=== PATIENT | male | born 1965 | race African-American/Black ===

== ENCOUNTER 2019-02-04 11:16 | Emergency (ER) | payer OTHER, SELFPAY ==
[2019-02-04 11:21] VITALS: BP 151/90; PULSE 79; RESP 15; TEMP 36.7; O2SAT 100; BMI 23.0
--- NOTE | 2019-02-04 11:21 | DI.RAD.S_ITS ---
PROCEDURE: XR CHEST 2V INDICATIONS: shortness of breath TECHNIQUE: 2 views of the chest were acquired. COMPARISON: None. FINDINGS: Surgical changes and devices: None. Lungs and pleura: Lungs are clear. No pleural effusions or pneumothorax. Mediastinum: Mediastinal contours are normal. Heart size is normal. Bones and chest wall: No suspicious bony abnormalities. Soft tissues appear unremarkable. IMPRESSION: No acute cardiopulmonary disease process. Dictated by: Kanika Lewis MD, PhD on 02/04/2019 at 11:51 Approved by: Kanika Lewis MD, PhD on 02/04/2019 at 11:52
[2019-02-04 11:47] LABS: Add Manual Diff / Slide Review NO; Basophils Absolute Auto 100 /uL (0-100); Eosinophils Absolute Auto 100 /uL (0-450); Eosinophils Percent Auto 2.3 % (2-4); Hematocrit 41.1 % (41-53); Hemoglobin 14.4 g/dL (13.5-17.5); Lymphocytes Absolute Auto 1800 /uL (1100-4500); Lymphocytes Percent Auto 33.5 % (25-40); Mean Corpuscular Hemoglobin 34.2 PG (26-34); Mean Corpuscular Volume 97.7 fL (80-100); Monocytes Absolute Auto 400 /uL (0-900); Monocytes Percent Auto 8.4 % (3-14); Neutrophils Absolute Auto 2900 /uL (1500-7000); Neutrophils Percent Auto 54.8 % (50-75); Platelet Count 211 X10^3/uL (150-400); Red Blood Cell Count 4.21 X10^6/uL (4.5-5.9); Red Cell Distribution Width 12.9 % (11.6-14.8); White Blood Cell Count 5.4 X10^3/uL (4.5-11.0)
[2019-02-04 11:50] LABS: Influenza A and B by PCR Rapid Negative (Negative)
[2019-02-04 12:00] LABS: Alanine Aminotransferase 21 IU/L (21-72); Albumin Globulin Ratio 1.7 (1.0-2.8); Alkaline Phosphatase 44 U/L (38-126); Aspartate Aminotransferase 37 IU/L (17-59); BUN Creatinine Ratio 15.6 (6-22); Bilirubin Total 0.4 mg/dL (0.2-1.3); Blood Urea Nitrogen 14 mg/dL (9-20); Calcium 9.7 mg/dL (8.4-10.2); Carbon Dioxide 29 mmol/L (22-32); Chloride 104 mmol/L (98-107); Creatine Kinase 162 U/L (55-170); Estimated Glomerular Filt Rate > 60.0 mL/min (>60); Glucose 92 mg/dL (70-100); HEMOLYSIS < 15 (0-50); Potassium 4.1 mmol/L (3.4-5.1); Sodium 143 mmol/L (137-145)
[2019-02-04 12:01] LABS: Lactate (Lactic Acid) 1.5 mmol/L (0.7-2.1)
[2019-02-04 12:12] LABS: Troponin I 0.013 ng/mL (0.01-0.034)
[2019-02-04 12:16] LABS: Creatine Kinase MB 1.56 ng/mL (<2.37)
[2019-02-04 12:30] VITALS: BP 142/84; PULSE 53; RESP 11; O2SAT 100
[2019-02-04] MEDS: MAG HYDROX/ALUMINUM/SIMETH SUS 20 ML, LIDOCAINE VISCOUS 2% 15 ML PO (12:48)
[2019-02-04 12:58] VITALS: PULSE 60; RESP 14; O2SAT 99
[2019-02-04] MEDS: ALBUTEROL/IPRATROPIUM 3 ML AMPUL INH (12:58)
--- NOTE | 2019-02-04 13:06 | ED_ITS ---
HPI - SOB/Dyspnea <DERREK AmbroseP - Last Filed: 02/04/19 21:50> General Chief Complaint: Shortness of Breath/Dyspnea Stated Complaint: SOB/ STOMACH PAIN X4DAYS Time Seen by Provider: 02/04/19 11:30 Source: patient Mode of arrival: Ambulatory Limitations: no limitations History of Present Illness HPI Narrative: This is a 54 year or male, smoker, who presents to ED with mid abdominal pain for 4 days, nonproductive cough. Patient has been having decreased appetite and loose stools without blood. Patient initially denied chest discomfort but when his spouse reminded him then states had some pressure like discomfort early this morning with chocking like sensation in his throat d escribing like GERD symptoms. Self reported fever and chills yesterday but denies nausea or vomiting. Patient reports a long history of bronchitis since . 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 Related Data Previous Rx's Medication Instructions Recorded albuterol sulfate 2 inhalation INHALATION Q4-6H PRN 02/04/19 #18 gram omeprazole 20 mg PO DAILY #14 cap 02/04/19 Allergies Allergy/AdvReac Type Severity Reaction Status Date / Time No Known Drug Allergies Allergy Verified 02/04/19 11:21 Review of Systems <MARTY Ambrose - Last Filed: 02/04/19 21:50> Review of Systems Narrative: General: One day of fever, chills yesterday which resolved. Denies Fatigue, malaise, sweats. HEENT: Denies sinus pain, ear pain, sore throat, difficulty swallowing, dizziness. Respiratory: Nonproductive cough. Denies dyspnea, wheezing, hemoptysis, sputum. Cardiovascular: See HPI Gastrointestinal: See HPI : Denies dysuria, frequency, incontinence, hematuria, urinary retention. Musculoskeletal: Denies weakness, joint pain or bony pain. Skin: Denies rash, skin lesions, or other. Neurologic: Denies weakness, headache, numbness, change in speech, confusion, seizures, incoordination. Psychiatric: No concerning psychosocial issues. 12-point review of systems is negative except for those stated above. Patient History <MARTY Ambrose Last Filed: 02/04/19 21:50> Medical History Bronchitis (Acute) Surgical History No pertinent past surgical history (Acute) Social History Smoking Status: Current every day smoker alcohol intake frequency: a few times a week Substance Use Type: marijuana Exam <MARTY Ambrose - Last Filed: 02/04/19 21:50> Narrative Exam Narrative: GEN: Alert, oriented x 3, well appearing and nourished, and in no acute distress. Head: Normal cephalic, atraumatic. No scalp or temporal tenderness, palpable mass or rash. EYES: Pupils are equal, round, and reactive to light and accommodation. Extraocular muscles are intact bilaterally. There is no subconjunctival hemorrhage, exudate and sclera icteric. ENT: Bilateral auditory canals and tympanic membranes clear. Hearing grossly intact. Nose without bleeding, purulent discharge or deviation. Facial sinuses nontender to palpate. Mucous membrane moist, no mucosal lesion. Throat without erythema, tonsillar hypertrophy or exudate. Uvula in midline, airway patent. Neck: Trachea in midline. No JVD, non-tender without lymphadenopathy. No masses or thyroid megaly. Supple, non-tender and no meningeal signs. CARDIAC: Normal regular rate and rhythm without murmurs, gallops, or rubs. No chest wall tenderness. No peripheral edema, cyanosis or pallor. Capillary refill is less than 2 seconds. RESPIRATORY: Lungs are clear to auscultate bilaterally. No cough, wheezes, rales, or rhonchi. No stridor, respiratory distress, increase work of breathing, or accessary muscle used. ABD: Abdomen soft, nontender and non-distended. No guarding or rebound tenderness to palpate. Bowel sounds are normal in all 4 quadrants. There is no palpable masses or organomegaly. EXT: Full painless ROM of all extremities with no loss of sensation, strength, effusion or edema. SKIN: Warm, dry, normal color for patient. No erythema, lesions or rash over visible areas. BACK: Nontender without deformity or crepitance. No flank tenderness. NEUROLOGICAL: Alert and oriented to place, time and person. Sensation and motor function intact bilaterally. No facial droops, dysphasia. PSYCHIATRIC: Good judgement and reason, without hallucinations, abnormal affect or abnormal behaviors during the examination. Initial Vital Signs Initial Vital Signs: Vital Signs Temperature 98.1 F 02/04/19 11:21 Pulse Rate 79 02/04/19 11:21 Respiratory Rate 15 02/04/19 11:21 Blood Pressure 151/90 H 02/04/19 11:21 Pulse Oximetry 100 02/04/19 11:21 <Ernie Thornton DO - Last Filed: 02/05/19 07:03> Initial Vital Signs Initial Vital Signs: Vital Signs Temperature 98.1 F 02/04/19 11:21 Pulse Rate 79 02/04/19 11:21 Respiratory Rate 15 02/04/19 11:21 Blood Pressure 151/90 H 02/04/19 11:21 Pulse Oximetry 100 02/04/19 11:21 Scores <Eduardo EdgeMARTY Cornelius - Last Filed: 02/04/19 21:50> GCS [place] coma scale eye opening: Spontaneous [place] coma scale verbal response: Orientated [place] coma scale motor response: Obey commands [place] coma scale total score: 15 HEART Score Heart Score history: Slightly Suspicious Heart Score EKG: Normal Heart Score Age: 45-64 years old Heart Score risk factors: 1-2 risk factors Heart Score troponin: < or = to normal limit Heart Score Total: 2 Course <MARTY Amborse - Last Filed: 02/04/19 21:50> Orders Ordered: Discontinued Medications Albuterol/Ipratropium (Duoneb) 3 ml INH NOW ONE Stop: 02/04/19 12:41 Last Admin: 02/04/19 12:58 Dose: 3 ml Documented by: ADARSH Al Hydrox/Mg Hydrox/Simethicone 20 ml/ Lidocaine HCl 15 ml 0 ml PO NOW ONE Stop: 02/04/19 12:41 Last Admin: 02/04/19 12:48 Dose: 35 ml Documented by: CARLOS Reevaluation(s) Reevaluation #1: Feeling better after the neb treatment Time: 13:06 Vital Signs Vital signs: Vital Signs - 8 hr 02/04/19 11:21 02/04/19 12:30 02/04/19 12:58 Temperature 98.1 F Pulse Rate 79 53 L 60 Respiratory Rate 15 11 L 14 Blood Pressure 151/90 H Blood Pressure [Right Arm] 142/84 H Pulse Oximetry 100 100 99 02/04/19 13:07 Temperature Pulse Rate 56 L Respiratory Rate 11 L Blood Pressure Blood Pressure [Right Arm] 138/86 Pulse Oximetry 100 <Ernie Thornton DO - Last Filed: 02/05/19 07:03> Orders Ordered: Discontinued Medications Albuterol/Ipratropium (Duoneb) 3 ml INH NOW ONE Stop: 02/04/19 12:41 Last Admin: 02/04/19 12:58 Dose: 3 ml Documented by: ADARSH Al Hydrox/Mg Hydrox/Simethicone 20 ml/ Lidocaine HCl 15 ml 0 ml PO NOW ONE Stop: 02/04/19 12:41 Last Admin: 02/04/19 12:48 Dose: 35 ml Documented by: CARLOS Vital Signs Vital signs: Vital Signs - 8 hr 02/04/19 11:21 02/04/19 12:30 02/04/19 12:58 Temperature 98.1 F Pulse Rate 79 53 L 60 Respiratory Rate 15 11 L 14 Blood Pressure 151/90 H Blood Pressure [Right Arm] 142/84 H Pulse Oximetry 100 100 99 02/04/19 13:07 Temperature Pulse Rate 56 L Respiratory Rate 11 L Blood Pressure Blood Pressure [Right Arm] 138/86 Pulse Oximetry 100 MDM - SOB/Dyspnea <MARTY Ambrose - Last Filed: 02/04/19 21:50> Differential Diagnosis Differential diagnosis: Likely community acquired pneumonia and other (Bronchitis, GERD, atypical chest pain, reactive airway disease) Medical Records Attestation: I reviewed the patient's medical records. Lab Data Attestation: I reviewed the patient's lab results. Result diagrams: 02/04/19 11:43 02/04/19 11:43 Labs: Lab Results 02/04/19 02/04/19 02/04/19 Range/Units 11:33 11:43 11:43 WBC 5.4 (4.5-11.0) X10^3/uL RBC 4.21 L (4.5-5.9) X10^6/uL Hgb 14.4 (13.5-17.5) g/dL Hct 41.1 (41-53) % MCV 97.7 (80-100) fL MCH 34.2 H (26-34) PG MCHC 35.0 (30-36) % RDW 12.9 (11.6-14.8) % Plt Count 211 (150-400) X10^3/uL Neut % (Auto) 54.8 (50-75) % Lymph % (Auto) 33.5 (25-40) % [place] % (Auto) 8.4 (3-14) % Eos % (Auto) 2.3 (2-4) % Baso % (Auto) 1.0 (0-2) % Neut # (Auto) 2900 (4531-0236) /uL Lymph # (Auto) 1800 (2333-6370) /uL [place] # (Auto) 400 (0-900) /uL Eos # (Auto) 100 (0-450) /uL Baso # (Auto) 100 (0-100) /uL PT INR APTT Sodium 143 (137-145) mmol/L Potassium 4.1 (3.4-5.1) mmol/L Chloride 104 (98-107) mmol/L Carbon Dioxide 29 (22-32) mmol/L BUN 14 (9-20) mg/dL Creatinine 0.90 (0.66-1.25) mg/dL Estimated GFR > 60.0 (>60) mL/min BUN/Creatinine Ratio 15.6 (6-22) Glucose 92 (70-100) mg/dL Lactate (0.7-2.1) mmol/L Calcium 9.7 (8.4-10.2) mg/dL Total Bilirubin 0.4 (0.2-1.3) mg/dL AST 37 (17-59) IU/L ALT 21 (21-72) IU/L Alkaline Phosphatase 44 (38-126) U/L Total Creatine Kinase (55-170) U/L CK-MB (CK-2) (<2.37) ng/mL CK-MB (CK-2) Rel Index (1.5-5.0) % Troponin I (0.01-0.034) ng/mL Total Protein 8.0 (6.3-8.2) g/dL Albumin 5.0 (3.5-5.0) g/dL Globulin 3.0 (1.7-4.1) g/dL Albumin/Globulin Ratio 1.7 (1.0-2.8) Influenza A & B (PCR) Negative (Negative) 02/04/19 02/04/19 02/04/19 Range/Units 11:43 11:43 11:43 WBC (4.5-11.0) X10^3/uL RBC (4.5-5.9) X10^6/uL Hgb (13.5-17.5) g/dL Hct (41-53) % MCV (80-100) fL MCH (26-34) PG MCHC (30-36) % RDW (11.6-14.8) % Plt Count (150-400) X10^3/uL Neut % (Auto) (50-75) % Lymph % (Auto) (25-40) % [place] % (Auto) (3-14) % Eos % (Auto) (2-4) % Baso % (Auto) (0-2) % Neut # (Auto) (3231-8178) /uL Lymph # (Auto) (2201-2369) /uL [place] # (Auto) (0-900) /uL Eos # (Auto) (0-450) /uL Baso # (Auto) (0-100) /uL PT Cancelled INR Cancelled APTT Cancelled Sodium (137-145) mmol/L Potassium (3.4-5.1) mmol/L Chloride (98-107) mmol/L Carbon Dioxide (22-32) mmol/L BUN (9-20) mg/dL Creatinine (0.66-1.25) mg/dL Estimated GFR (>60) mL/min BUN/Creatinine Ratio (6-22) Glucose (70-100) mg/dL Lactate 1.5 (0.7-2.1) mmol/L Calcium (8.4-10.2) mg/dL Total Bilirubin (0.2-1.3) mg/dL AST (17-59) IU/L ALT (21-72) IU/L Alkaline Phosphatase (38-126) U/L Total Creatine Kinase 162 (55-170) U/L CK-MB (CK-2) 1.56 (<2.37) ng/mL CK-MB (CK-2) Rel Index 1.0 L (1.5-5.0) % Troponin I 0.013 (0.01-0.034) ng/mL Total Protein (6.3-8.2) g/dL Albumin (3.5-5.0) g/dL Globulin (1.7-4.1) g/dL Albumin/Globulin Ratio (1.0-2.8) Influenza A & B (PCR) (Negative) Imaging Data Chest x-ray: Radiologist's impression: [address] [address] XRay Report Signed Patient: Hilton Sanchez GMR#: [id number] : 1965Acct:[id number] Age/Sex: 54 / MDate of Service: 02/04/19 Loc: ED Accession Number: [id number] Procedure: XR chest 2V Ordering Provider: Ernie Thornton D.O. PROCEDURE: XR CHEST 2V INDICATIONS: shortness of breath TECHNIQUE: 2 views of the chest were acquired. COMPARISON: None. FINDINGS: Surgical changes and devices: None. Lungs and pleura: Lungs are clear. No pleural effusions or pneumothorax. Mediastinum: Mediastinal contours are normal. Heart size is normal. Bones and chest wall: No suspicious bony abnormalities. Soft tissues appear unremarkable. IMPRESSION: No acute cardiopulmonary disease process. Dictated by: Kanika Lewis MD, PhD on 02/04/2019 at 11:51 Approved by: Kanika Lewis MD, PhD on 02/04/2019 at 11:52 ECG Data Attestation: I personally reviewed and interpreted this ECG as follows: Prior ECG tracings: not available for review Interpretation: Sinus rhythm with sinus arrhythmia rate at 63. Right ventricular conduction delay in V1/V2, No ST elevation or depression. [facility] Narrative Medical decision making narrative: 54-year-old gentleman who presents to ED with nonproductive cough with some chest discomfort and breathing difficulty for 2-4 days and GERD like symptoms for about a week. 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 Patient has history of frequent bronchitis in the past. Patient's heart score was 2 (Smoker, Age) without previous cardiac history. EKG was sinus rhythm with right ventricular delayed conduction. Cardiac enzymes were negative. Chest x-ray did not show any acute findings. Patient was treated with 1 dose of DuoNeb and reports improved symptoms. Patient also was medicated with GI cocktail. Findings were discussed with the patient and patient advised to set up a PCP to follow up with outpatient cardiac workup and possible colonoscopy or EGD. Patient was discharged to home with albuterol inhaler and 2 week course of omeprazole. Advised to avoid triggers for his r espiratory and GERD symptoms. Return precautions were discussed with patient and patient verbalized understanding and agrees with treatment plan. <Ernie Thornton, - Last Filed: 02/05/19 07:03> Lab Data Labs: Lab Results 02/04/19 02/04/19 02/04/19 Range/Units 11:33 11:43 11:43 WBC 5.4 (4.5-11.0) X10^3/uL RBC 4.21 L (4.5-5.9) X10^6/uL Hgb 14.4 (13.5-17.5) g/dL Hct 41.1 (41-53) % MCV 97.7 (80-100) fL MCH 34.2 H (26-34) PG MCHC 35.0 (30-36) % RDW 12.9 (11.6-14.8) % Plt Count 211 (150-400) X10^3/uL Neut % (Auto) 54.8 (50-75) % Lymph % (Auto) 33.5 (25-40) % [place] % (Auto) 8.4 (3-14) % Eos % (Auto) 2.3 (2-4) % Baso % (Auto) 1.0 (0-2) % Neut # (Auto) 2900 (4539-3312) /uL Lymph # (Auto) 1800 (9601-5319) /uL [place] # (Auto) 400 (0-900) /uL Eos # (Auto) 100 (0-450) /uL Baso # (Auto) 100 (0-100) /uL PT INR APTT Sodium 143 (137-145) mmol/L Potassium 4.1 (3.4-5.1) mmol/L Chloride 104 (98-107) mmol/L Carbon Dioxide 29 (22-32) mmol/L BUN 14 (9-20) mg/dL Creatinine 0.90 (0.66-1.25) mg/dL Estimated GFR > 60.0 (>60) mL/min BUN/Creatinine Ratio 15.6 (6-22) Glucose 92 (70-100) mg/dL Lactate (0.7-2.1) mmol/L Calcium 9.7 (8.4-10.2) mg/dL Total Bilirubin 0.4 (0.2-1.3) mg/dL AST 37 (17-59) IU/L ALT 21 (21-72) IU/L Alkaline Phosphatase 44 (38-126) U/L Total Creatine Kinase (55-170) U/L CK-MB (CK-2) (<2.37) ng/mL CK-MB (CK-2) Rel Index (1.5-5.0) % Troponin I (0.01-0.034) ng/mL Total Protein 8.0 (6.3-8.2) g/dL Albumin 5.0 (3.5-5.0) g/dL Globulin 3.0 (1.7-4.1) g/dL Albumin/Globulin Ratio 1.7 (1.0-2.8) Influenza A & B (PCR) Negative (Negative) 02/04/19 02/04/19 02/04/19 Range/Units 11:43 11:43 11:43 WBC (4.5-11.0) X10^3/uL RBC (4.5-5.9) X10^6/uL Hgb (13.5-17.5) g/dL Hct (41-53) % MCV (80-100) fL MCH (26-34) PG MCHC (30-36) % RDW (11.6-14.8) % Plt Count (150-400) X10^3/uL Neut % (Auto) (50-75) % Lymph % (Auto) (25-40) % [place] % (Auto) (3-14) % Eos % (Auto) (2-4) % Baso % (Auto) (0-2) % Neut # (Auto) (1064-5938) /uL Lymph # (Auto) (3062-8987) /uL [place] # (Auto) (0-900) /uL Eos # (Auto) (0-450) /uL Baso # (Auto) (0-100) /uL PT Cancelled INR Cancelled APTT Cancelled Sodium (137-145) mmol/L Potassium (3.4-5.1) mmol/L Chloride (98-107) mmol/L Carbon Dioxide (22-32) mmol/L BUN (9-20) mg/dL Creatinine (0.66-1.25) mg/dL Estimated GFR (>60) mL/min BUN/Creatinine Ratio (6-22) Glucose (70-100) mg/dL Lactate 1.5 (0.7-2.1) mmol/L Calcium (8.4-10.2) mg/dL Total Bilirubin (0.2-1.3) mg/dL AST (17-59) IU/L ALT (21-72) IU/L Alkaline Phosphatase (38-126) U/L Total Creatine Kinase 162 (55-170) U/L CK-MB (CK-2) 1.56 (<2.37) ng/mL CK-MB (CK-2) Rel Index 1.0 L (1.5-5.0) % Troponin I 0.013 (0.01-0.034) ng/mL Total Protein (6.3-8.2) g/dL Albumin (3.5-5.0) g/dL Globulin (1.7-4.1) g/dL Albumin/Globulin Ratio (1.0-2.8) Influenza A & B (PCR) (Negative) Discharge Plan Departure Patient Disposition: Home Clinical Impression: Bronchitis, Atypical chest pain GERD (gastroesophageal reflux disease) Qualifiers: Esophagitis presence: esophagitis presence not specified Qualified Code(s): K21.9 - Gastro-esophageal reflux disease without esophagitis Discharge Date/Time: 02/04/19 14:04 Instructions: DI for Gastroesophageal Reflux Disease (GERD), DI for Acute Bronchitis, DI for Atypical Chest Pain Activity Restrictions/Additional Instructions: You have been diagnosed with [atypical chest pain and bronchitis. The blood test including cardiac enzymes were for couple. EKG was unremarkable as well. Chest x-ray showed no pneumonia. If your stomach is bothersome frequently, you probably need to be referred to GI specialist/colonoscopy. When he set up an appointment with primary care physician, you probably need to arrange chest pain workup as well as an outpatient.]. What to do: *Take your medications as directed. Albuterol inhaler has been ordered for frequent coughing, chest tightness, or short of breath. You can take [id number] allergy medications as well. Please avoid trigger environments for your cough and allergy symptoms. *Follow up with your primary care provider in 2-3 days, call for an appointment. I included [facility] phone numbers for you to arrange this. Let them know you were seen in the ED and that we asked you to be seen in follow up. *Return to ED if you have any new, worsening, or concerning symptoms, such as [different type or worsening of chest pain, increasing breathing difficulty, nausea or vomiting, feeling weakness, fever, or any acute concerns]. Prescriptions: New albuterol sulfate 90 mcg/actuation HFA aerosol inhaler 2 inhalation INHALATION Q4-6H PRN (Reason: shortness of breath) Qty: 18 RF: 0 omeprazole 20 mg capsule,delayed release(DR/EC) 20 mg PO DAILY Qty: 14 RF: 0 Referrals: [facility] [Outside] <Ernie Thornton, - Last Filed: 02/05/19 07:03> Sign Out Provider Sign Out Attestation: I was available for consultation during this patient's emergency department visit. This chart is signed by myself for administrative purposes only. I did not have direct contact with this patient during this visit. They were seen independently by the APC.
[2019-02-04 13:07] VITALS: BP 138/86; PULSE 56; RESP 11; O2SAT 100
== END 2019-02-04 14:04 | disposition home or self-care (01) ==
PROVIDERS: Emergency Medicine; Emergency Provider Nurse Practitioner Family
DX: J40 Bronchitis, not specified as acute or chronic (principal); R07.9 Chest pain, unspecified; K21.9 Gastro-esophageal reflux disease without esophagitis; R05 Cough; R06.02 Shortness of breath
CPT/HCPCS: 36415; 71046; 80053; 82550; 82553; 83605; 84484; 85025; 87502; 93005; 93010; 94640; 99283; 99285

== ENCOUNTER 2020-06-09 09:59 | Emergency (ER) | payer OTHER, SELFPAY ==
[2020-06-09] VITALS (14 sets, daily range): BP systolic 139–171; BP diastolic 84–105; PULSE 52–84; RESP 12–28; TEMP 36.6; O2SAT 99–100; BMI 23.7
--- NOTE | 2020-06-09 10:01 | DI.RAD.S_ITS ---
PROCEDURE: XR CHEST 1V INDICATIONS: chest pain TECHNIQUE: One view of the chest was acquired. COMPARISON: [facility], CR, XR CHEST 2V, 02/04/2019, 11:36. FINDINGS: Surgical changes and devices: None. Lungs and pleura: Lungs are clear. No pleural effusions or pneumothorax. Mediastinum: Mediastinal contours appear normal. Heart size is normal. Bones and chest wall: No suspicious bony lesions. Overlying soft tissues appear unremarkable. IMPRESSION: No acute cardiopulmonary abnormalities or focal airspace disease. Dictated by: Kingston Rose M.D. on 06/09/2020 at 10:37 Approved by: Kingston Rose M.D. on 06/09/2020 at 10:38
--- NOTE | 2020-06-09 10:19 | ED.CHESTPAIN ---
HPI - Chest Pain General Chief Complaint: Chest Pain Stated Complaint: Mild Chest pain Time Seen by Provider: 06/09/20 10:09 Source: patient History of Present Illness HPI narrative: Patient here with girlfriend. Complains off and on substernal radiating chest discomfort to the neck. Has had diaphoresis. No palpitations numbness tingling or weakness. No dyspnea. Patient is a smoker. No known family history of coronary disease. Never had stress test in the past. Feels achy and sometimes choking sensation. No dietary intolerance. No nausea. Has been under lot of stress recently. Related Data Previous Rx's Medication Instructions Recorded albuterol sulfate 2 inhalation INHALATION Q4-6H PRN 02/04/19 #18 gram omeprazole 20 mg PO DAILY #14 cap 02/04/19 hydrochlorothiazide 12.5 mg PO DAILY 30 Days #30 tab 06/09/20 miscellaneous medical supply #1 ea 06/09/20 [Blood Pressure Cuff] omeprazole 40 mg PO DAILY 14 Days #14 cap 06/09/20 Allergies Allergy/AdvReac Type Severity Reaction Status Date / Time No Known Drug Allergies Allergy Verified 02/04/19 11:21 Review of Systems Review of Systems Narrative: GENERAL: Denies chills, fatigue, malaise, fever, sweats. HEENT: Denies sinus pain, ear pain, sore throat RESPIRATORY: Denies dyspnea, cough CARDIOVASCULAR: Complaint chest pain, denies palpitations, complains of diaphoresis GASTROINTESTINAL: Denies nausea, vomiting, abdominal pain : Denies dysuria, frequency, hematuria MUSCULOSKELETAL: denies muscle or bony pain SKIN: Denies rash, skin lesions NEUROLOGIC: Denies weakness, numbness ROS Unobtainable: All systems reviewed & are unremarkable except as noted in HPI and below Patient History Medical History (Updated 06/09/20 @ 13:43 by Ye Vega DO) Bronchitis GERD (gastroesophageal reflux disease) Surgical History No pertinent past surgical history Family History Other Diabetes mellitus Hypertension Social History Smoking Status: Current every day smoker (1/ ppd, + marijuana twice weekly) Smoking Status: Current every day smoker alcohol intake frequency: a few times a week Substance Use Type: marijuana Exam Narrative Exam Narrative: GENERAL: in no distress, not toxic not dyspneic HEAD: Normocephalic. EYES: Pupils equal round No scleral icterus. No injection no discharge ENT: Mucous membranes moist. NECK: Trachea midline. CARDIOVASCULAR: Regular rate and rhythm without murmurs RESPIRATORY: Clear to auscultation. Breath sounds equal bilaterally. No wheezes, rales, or rhonchi. GASTROINTESTINAL: Abdomen soft, non-tender EXTREMITIES: No gross deformities. BACK: No flank tenderness. NEURO: AOx4. SKIN: Warm and dry PSYCH: Not anxious, is cooperative Initial Vital Signs Initial Vital Signs: Vital Signs Temperature 97.8 F 06/09/20 10:10 Pulse Rate 68 06/09/20 10:10 Respiratory Rate 16 06/09/20 10:10 Blood Pressure 163/93 H 06/09/20 10:10 Pulse Oximetry 100 06/09/20 10:10 Course Course Course Narrative: No new issues during course of stay Decision to Admit Date: 06/09/20 Decision to Admit time: 11:56 Orders Ordered: Discontinued Medications Aspirin (Aspirin 81 Mg Chew Tab) 324 mg PO NOW ONE Stop: 06/09/20 10:19 Last Admin: 06/09/20 10:53 Dose: 324 mg Documented by: UMAIR Al Hydrox/Mg Hydrox/Simethicone 20 ml/ Lidocaine HCl 15 ml 0 ml PO NOW ONE Stop: 06/09/20 11:59 Last Admin: 06/09/20 12:04 Dose: 35 ml Documented by: UMAIR Nitroglycerin (Nitroglycerin Oint 1 Inch/Gm Oint...G.) 0.5 inch TOP NOW ONE Stop: 06/09/20 10:19 Last Admin: 06/09/20 10:53 Dose: 0.5 inch Documented by: UMAIR Ondansetron HCl (Ondansetron 4 Mg/2 Ml Inj) 4 mg IV NOW ONE Stop: 06/09/20 10:19 Last Admin: 06/09/20 10:54 Dose: 4 mg Documented by: UMAIR Reevaluation(s) Reevaluation #1: Patient states feels better after nitro paste Time: 11:56 Reevaluation #2: Pain did return after nitro paste and GI cocktail given and resolved substernal chest pain/epigastric pain. Time: 13:36 Reevaluation #3: 158/89. Blood pressure has improved. Patient was anxious while talking to hospitalist. Feels much better. Pain free. Patient and girlfriend desire discharge home Time: 13:55 Consultations Consultation #1: Spoke with Dr. Vega, hospitalist, who will see patient in the emergency department. At this time with low heart score does not want to admit patient. Time: 12:25 Vital Signs Vital signs: Vital Signs - 8 hr 06/09/20 10:10 06/09/20 10:14 06/09/20 10:30 Temperature 97.8 F Pulse Rate 68 80 60 Respiratory Rate 16 28 H 12 Blood Pressure 163/93 H 160/93 H Pulse Oximetry 100 100 100 06/09/20 10:53 06/09/20 11:00 06/09/20 11:30 Temperature Pulse Rate 69 52 L 57 L Respiratory Rate 16 14 Blood Pressure 160/93 H 150/84 H 150/92 H Pulse Oximetry 100 99 06/09/20 11:59 06/09/20 12:00 06/09/20 12:30 Temperature Pulse Rate 52 L 60 52 L Respiratory Rate 13 24 13 Blood Pressure 165/90 H 139/91 H Pulse Oximetry 100 100 99 06/09/20 12:31 06/09/20 13:00 Temperature Pulse Rate 52 L 73 Respiratory Rate 16 23 Blood Pressure 167/90 H 171/105 H Pulse Oximetry 99 100 MDM - Chest Pain Differential Diagnosis Differential diagnosis: Likely stable angina, unstable angina pectoris, atypical chest pain and st elevation myocardial infarction Medical Records Data Attestation: I reviewed the patient's medical records. Lab Data Attestation: I reviewed the patient's lab results. Result diagrams: 06/09/20 10:07 06/09/20 10:07 Labs: Lab Results 06/09/20 06/09/20 06/09/20 Range/Units 10:07 10:07 10:07 WBC 9.1 (4.5-11.0) X10^3/uL RBC 4.44 L (4.5-5.9) X10^6/uL Hgb 14.7 (13.5-17.5) g/dL Hct 43.3 (41-53) % MCV 97.5 (80-100) fL MCH 33.0 (26-34) PG MCHC 33.8 (30-36) % RDW 13.1 (11.6-14.8) % Plt Count 224 (150-400) X10^3/uL Neut % (Auto) 65.1 (50-75) % Lymph % (Auto) 24.6 L (25-40) % [place] % (Auto) 7.0 (3-14) % Eos % (Auto) 2.8 (2-4) % Baso % (Auto) 0.5 (0-2) % Neut # (Auto) 5900 (7184-2335) /uL Lymph # (Auto) 2200 (7993-7935) /uL [place] # (Auto) 600 (0-900) /uL Eos # (Auto) 300 (0-450) /uL Baso # (Auto) 0 (0-100) /uL PT 10.4 (10.1-12.7) SECONDS INR 0.9 (0.9-1.3) APTT 30 (26.4-36.2) SECONDS Sodium 137 (137-145) mmol/L Potassium 3.6 (3.4-5.1) mmol/L Chloride 102 (98-107) mmol/L Carbon Dioxide 30 (22-32) mmol/L BUN 9 (9-20) mg/dL Creatinine 1.01 (0.66-1.25) mg/dL Estimated GFR > 60.0 (>60) mL/min BUN/Creatinine Ratio 8.9 (6-22) Glucose 115 H (70-100) mg/dL Calcium 9.7 (8.4-10.2) mg/dL Total Bilirubin 0.7 (0.2-1.3) mg/dL AST 39 (17-59) IU/L ALT 31 (<50) IU/L Alkaline Phosphatase 64 (38-126) U/L Total Creatine Kinase 267 H (55-170) U/L CK-MB (CK-2) 0.72 (<2.37) ng/mL CK-MB (CK-2) Rel Index 0.3 L (1.5-5.0) % Troponin I 0.027 (0.01-0.034) ng/mL Total Protein 7.8 (6.3-8.2) g/dL Albumin 4.7 (3.5-5.0) g/dL Globulin 3.1 (1.7-4.1) g/dL Albumin/Globulin Ratio 1.5 (1.0-2.8) Lipase 71 (23-300) U/L Imaging Data Chest x-ray: Radiologist's Impression: [facility] [place] [id number] ReportSigned Patient: Hilton Sanchez GMR#: [id number]: 1965Acct:[id number]/Sex: 55 / MDate of Service: 06/09/20Loc: EDAccession Number: [id number] Procedure: XR chest 1V Ordering Provider: Vasyl Gonzalez MD PROCEDURE: XR CHEST 1V INDICATIONS: chest pain TECHNIQUE: One view of the chest was acquired. COMPARISON: [facility], XR CHEST 2V, 02/04/2019, 11:36. FINDINGS: Surgical changes and devices: None. Lungs and pleura: Lungs are clear. No pleural effusions or pneumothorax. Mediastinum: Mediastinal contours appear normal. Heart size is normal. Bones and chest wall: No suspicious bony lesions. Overlying soft tissues appear unremarkable. IMPRESSION: No acute cardiopulmonary abnormalities or focal airspace disease. Dictated by: Kingston Rose M.D. on 06/09/2020 at 10:37 Approved by: Kingston Rose M.D. on 06/09/2020 at 10:38 ECG Data Attestation: I personally reviewed and interpreted this ECG as follows: Interpretation: Sinus bradycardia. No ST elevation or depression. Rate 54. Repeat EKG 11:56 a.m.. Sinus bradycardia otherwise normal EKG ventricular rate 50. No ST elevation depression, no change MDM Narrative Medical decision making narrative: Appropriate for discharge home. Patient evaluated by hospitalist. Pain resolved with GI cocktail. Hospitalist Dr. Navarrete has provided prescriptions for patient including blood pressure medication and blood pressure cuff and an acid. Patient does have a family doctor to follow up with Discharge Plan Departure Patient Disposition: Home Clinical Impression: Chest pain Qualifiers: Chest pain type: unspecified Qualified Code(s): R07.9 - Chest pain, unspecified Instructions: DI for Chest Pain, DI for Epigastric Pain Activity Restrictions/Additional Instructions: Return if worse if any questions or concerns. 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 See family doctor this week for recheck of blood pressure and for possible scheduling endoscopy of her stomach. No fried fatty greasy foods. No smoking. Prescriptions: New omeprazole 40 mg capsule,delayed release(DR/EC) 40 mg PO DAILY 14 Days Qty: 14 RF: 0 (DME) Blood Pressure Cuff Misc See Rx Instructions .ROUTE .MEDSUPPLY Qty: 1 RF: 0 hydrochlorothiazide 12.5 mg tablet 12.5 mg PO DAILY 30 Days Qty: 30 RF: 0 No Action albuterol sulfate 90 mcg/actuation HFA aerosol inhaler 2 inhalation INHALATION Q4-6H PRN (Reason: shortness of breath) Qty: 18 RF: 0 omeprazole 20 mg capsule,delayed release(DR/EC) 20 mg PO DAILY Qty: 14 RF: 0
[2020-06-09 10:25] LABS: Add Manual Diff / Slide Review NO; Basophils Absolute Auto 0 /uL (0-100); Basophils Percent Auto 0.5 % (0-2); Eosinophils Absolute Auto 300 /uL (0-450); Eosinophils Percent Auto 2.8 % (2-4); Hematocrit 43.3 % (41-53); Hemoglobin 14.7 g/dL (13.5-17.5); Lymphocytes Absolute Auto 2200 /uL (1100-4500); Lymphocytes Percent Auto 24.6 % (25-40); Mean Corpuscular HGB Conc 33.8 % (30-36); Mean Corpuscular Volume 97.5 fL (80-100); Monocytes Absolute Auto 600 /uL (0-900); Neutrophils Absolute Auto 5900 /uL (1500-7000); Neutrophils Percent Auto 65.1 % (50-75); Platelet Count 224 X10^3/uL (150-400); Red Blood Cell Count 4.44 X10^6/uL (4.5-5.9); Red Cell Distribution Width 13.1 % (11.6-14.8); White Blood Cell Count 9.1 X10^3/uL (4.5-11.0)
[2020-06-09 10:37] LABS: INR 0.9 (0.9-1.3); Prothrombin Time 10.4 SECONDS (10.1-12.7)
[2020-06-09 10:39] LABS: PTT Partial Thromboplastin Tim 30 SECONDS (26.4-36.2)
[2020-06-09 10:40] LABS: Alanine Aminotransferase 31 IU/L (<50); Albumin 4.7 g/dL (3.5-5.0); Albumin Globulin Ratio 1.5 (1.0-2.8); Alkaline Phosphatase 64 U/L (38-126); Aspartate Aminotransferase 39 IU/L (17-59); BUN Creatinine Ratio 8.9 (6-22); Bilirubin Total 0.7 mg/dL (0.2-1.3); Blood Urea Nitrogen 9 mg/dL (9-20); Calcium 9.7 mg/dL (8.4-10.2); Carbon Dioxide 30 mmol/L (22-32); Chloride 102 mmol/L (98-107); Creatine Kinase 267 U/L (55-170); Estimated Glomerular Filt Rate > 60.0 mL/min (>60); Globulin 3.1 g/dL (1.7-4.1); Glucose 115 mg/dL (70-100); HEMOLYSIS < 15 (0-50); Lipase 71 U/L (23-300); Potassium 3.6 mmol/L (3.4-5.1); Sodium 137 mmol/L (137-145); Total Protein 7.8 g/dL (6.3-8.2)
[2020-06-09 10:52] LABS: Troponin I 0.027 ng/mL (0.01-0.034)
[2020-06-09] MEDS: ASPIRIN 81 MG CHEW TAB 324 MG PO (10:53)
[2020-06-09] MEDS: NITROGLYCERIN OINT 1 INCH/GM OINT...G. 0.5 INCH TOP (10:53)
[2020-06-09] MEDS: ONDANSETRON 4 MG/2 ML INJ IV (10:54)
[2020-06-09 10:55] LABS: CKMB % Relative Index 0.3 % (1.5-5.0); Creatine Kinase MB 0.72 ng/mL (<2.37)
[2020-06-09] MEDS: MAG HYDROX/ALUMINUM/SIMETH SUS 20 ML, LIDOCAINE VISCOUS 2% 15 ML PO (12:04)
--- NOTE | 2020-06-09 13:24 | P.CONS_ITS ---
History of Present Illness Consult details Date Patient Seen: 06/09/20 Time Patient Seen: 13:24 Chief complaint: Mild Chest pain Reason for consult: chest pain Requesting provider: Vasyl Gonzalez Narrative: Hilton Sanchez is a 55-year-old male with a past medical history of GERD and active smoker who presented to the emergency room today with continued epigastric pain for the past 2 weeks. Patient states that for the past 2 weeks he has had what initially started as an epigastric bloating/gas type pain which is not necessarily associated with food and is intermittent in nature but does coming go although he cannot state exactly what exacerbates her brings this on. This has been worsening over the past 5-6 days and has migrated into his lower chest. There is no radiation into his neck or jaw or arm and this is not associated with exertion, dyspnea, diaphoresis, palpitations. He has had no recent fevers, chills, orthopnea, nausea, vomiting, diarrhea. He has recently established care with a primary care provider in [place]. He had a similar type episode about a year ago where he improved with omeprazole and albuterol prescriptions. He is not currently on omeprazole. He states he has had reflux symptoms for the past couple of years off and on. In the emergency room, he was given some nitroglycerin which did help with his pain. He was also given a GI cocktail. His vital signs were remarkable for hypertension but the remainder of his vital signs were unremarkable. EKG shows sinus bradycardia with a possible right bundle jesus manuel block but no evidence of acute ischemia. Chest x-ray is unremarkable. Medicine was consulted for possible admission for further evaluation of His chest pain. His current heart score is between 2 and 3, and his history is more consistent with GERD rather than ischemic Type chest pain. Patient can be discharged home and I did recommend he follow-up with his primary care provider. Meds Home Medications and Allergies Home Medications Medication Instructions Recorded Confirmed Type albuterol sulfate 2 inhalation INHALATION Q4-6H PRN 02/04/19 Rx #18 gram omeprazole 20 mg PO DAILY #14 cap 02/04/19 Rx hydrochlorothiazide 12.5 mg PO DAILY 30 Days #30 tab 06/09/20 Rx miscellaneous medical supply #1 ea 06/09/20 Rx [Blood Pressure Cuff] omeprazole 40 mg PO DAILY 14 Days #14 cap 06/09/20 Rx Allergies Allergy/AdvReac Type Severity Reaction Status Date / Time No Known Drug Allergies Allergy Verified 02/04/19 11:21 Review of Systems Review of Systems Narrative: All other systems reviewed with the patient and are negative unless otherwise stated. Exam Vital Signs (past 8 hours): - 06/09/20 10:10 06/09/20 10:14 06/09/20 10:30 Temperature 97.8 F Pulse Rate 68 80 60 Respiratory Rate 16 28 H 12 Blood Pressure 163/93 H 160/93 H Pulse Oximetry 100 100 100 06/09/20 10:53 06/09/20 11:00 06/09/20 11:30 Temperature Pulse Rate 69 52 L 57 L Respiratory Rate 16 14 Blood Pressure 160/93 H 150/84 H 150/92 H Pulse Oximetry 100 99 06/09/20 11:59 06/09/20 12:00 06/09/20 12:30 Temperature Pulse Rate 52 L 60 52 L Respiratory Rate 13 24 13 Blood Pressure 165/90 H 139/91 H Pulse Oximetry 100 100 99 06/09/20 12:31 06/09/20 13:00 Temperature Pulse Rate 52 L 73 Respiratory Rate 16 23 Blood Pressure 167/90 H 171/105 H Pulse Oximetry 99 100 Oxygen Delivery Method Room Air Narrative Exam Narrative: GENERAL APPEARANCE: Well developed, well nourished, in no acute distress. SKIN: Inspection of the skin reveals no rashes, ulcerations or petechiae. HEENT: Normocephalic atraumatic, extraocular muscles are intact, oropharynx is clear and mucous membranes are moist, neck is supple without adenopathy NECK: Supple and symmetric. There was no thyroid enlargement, and no tenderness, or masses were felt. CHEST: Normal AP diameter and normal contour without any kyphoscoliosis. LUNGS: Auscultation of the lungs revealed no wheezes, rhonchi, or rales. CARDIOVASCULAR: There was a regular rate and rhythm without any murmurs, gallops, rubs. Peripheral pulses were 2+ and symmetric. ABDOMEN: Soft, mildly tender in the epigastrium, no distension. MUSCULOSKELETAL: There was no tenderness or effusions noted. Muscle strength and tone were normal. EXTREMITIES: No cyanosis, clubbing or edema. NEUROLOGIC: Alert and oriented x 3. Normal affect. Gait was normal. Strength is +5/5 in the Upper Extremities and Lower Extremities Bilaterally. Sensation to touch was normal. Objective Labs Result Diagrams: 06/09/20 10:07 06/09/20 10:07 Labs: Laboratory Results - last 24 hr 06/09/20 06/09/20 06/09/20 10:07 10:07 10:07 WBC 9.1 RBC 4.44 L Hgb 14.7 Hct 43.3 MCV 97.5 MCH 33.0 MCHC 33.8 RDW 13.1 Plt Count 224 Neut % (Auto) 65.1 Lymph % (Auto) 24.6 L [place] % (Auto) 7.0 Eos % (Auto) 2.8 Baso % (Auto) 0.5 Neut # (Auto) 5900 Lymph # (Auto) 2200 [place] # (Auto) 600 Eos # (Auto) 300 Baso # (Auto) 0 PT 10.4 INR 0.9 APTT 30 Sodium 137 Potassium 3.6 Chloride 102 Carbon Dioxide 30 BUN 9 Creatinine 1.01 Estimated GFR > 60.0 BUN/Creatinine Ratio 8.9 Glucose 115 H Calcium 9.7 Total Bilirubin 0.7 AST 39 ALT 31 Alkaline Phosphatase 64 Total Creatine Kinase 267 H CK-MB (CK-2) 0.72 CK-MB (CK-2) Rel Index 0.3 L Troponin I 0.027 Total Protein 7.8 Albumin 4.7 Globulin 3.1 Albumin/Globulin Ratio 1.5 Lipase 71 Assessment & Plan Assessment & Plan narrative: This is a 55-year-old male who presented to the emergency room with complaints of epigastric abdominal pain which is migrated into his lower chest. Medicine was consulted for possible admission for further evaluation of chest pain. Given his presentation his symptoms are most consistent with GERD. Cannot rule out atypical chest pain, however his EKG is reassuring and his heart score is 2 or 3 at most, or low risk. He is safe to discharge home given current risk stratification guidlines and follow up with PCP. The patient has been trying to cut down on his smoking, I reinforced that this will help with his blood pressure and overall health. I did send him a 14 day trial of omeprazole for presumed gastritis. He can follow-up with his primary care provider in [place] for further evaluation. I did send him a blood pressure cuff as well, and if his blood pressure remains elevated at home I did send him a small dose of hydrochlorothiazide to start. Time Spent With Patient Time with patient: 25 - 35 minutes
--- NOTE | 2020-06-10 13:57 | PC.NURSE ---
Prescriptions called to [facility] place
== END 2020-06-09 13:58 | disposition home or self-care (01) ==
PROVIDERS: Emergency Provider Emergency Medicine
DX: R07.9 Chest pain, unspecified (principal); M54.2 Cervicalgia
CPT/HCPCS: 36415; 71045; 80053; 82550; 82553; 83690; 84484; 85025; 85610; 85730; 93005; 96374; 99283; 99284; J2405